=== PATIENT | male | born 1950 | race Caucasian/White ===

== ENCOUNTER 2019-01-01 05:57 | Outpatient (CLI) | payer MEDICARE, BC ==
[~2019-01-01] VITALS: Ht 182.9 cm; Wt 93.0 kg
[2019-01-01] MEDS ORDERED: MULT-1104 PO (12:20)
[2019-01-01] MEDS ORDERED: ATOR20TA66 PO (12:20)
[2019-01-01] MEDS ORDERED: BICA50TA5 PO (12:20)
[2019-01-01] MEDS ORDERED: DIAZ10TA3 PO (12:20)
== END 2019-01-01 12:32 | disposition home or self-care (01) ==
LOC: PREOP 05:57
PROVIDERS: ATTEND Radiology Radiation Oncology
DX: Z01.818 Encounter for other preprocedural examination (principal)

== ENCOUNTER → 2019-01-01 | Outpatient (CLI) | payer SELFPAY ==
[~2019-01-01] MED LIST: ATOR20TA66 PO; BICA50TA5 PO; DIAZ10TA3 PO; MULT-1104 PO
== END | disposition home or self-care (01) ==
LOC: PREOP 05:41 → MERGE 05:41
PROVIDERS: ATTEND Radiology Radiation Oncology
DX: Z01.818 Encounter for other preprocedural examination (principal)

== ENCOUNTER → 2019-01-08 | Day surgery (SDC) | payer MEDICARE, BC ==
[~2019-01-08] VITALS: Ht 182.9 cm; Wt 93.0 kg
[~2019-01-08] MED LIST changes: +ACET1TAB43 PO; +CIPR-226 PO; +DEXAMETHASONE 10 MG/ML (DECADRON) 1 ML VIAL ONE; +IOPAMIDOL 61% 30 ML (ISOVUE 300) VIAL IV ONE; +LACTATED RINGERS 1,000 ML IV PRN; +LEVOFLOXACIN 500 MG/100 ML IV 100 ML IV ONE; +LIDOCAINE PF 2% 5 ML (XYLOCAINE) VIAL ONE; +MIDAZOLAM 2 MG/2 ML (VERSED) VIAL ONE; +MUPIROCIN 2% OINT 22 GM (BACTROBAN) TUBE ONE; +ONDANSETRON 4 MG/2 ML (SDV) Z0FRAN ONE; +SEVOFLURANE (ULTANE) 15 ML INHAL SOLN ONE; +fentaNYL INJECTION 100 MCG/2 ML AMP ONE; +proPOfol 200 MG/20 ML (DIPRIVAN) VIAL IV ONE
[2019-01-08 11:30] VITALS: BP 151/94
== END | disposition home or self-care (01) ==
LOC: SDC 11:08 → MERGE 13:45
PROVIDERS: ATTEND Radiology Radiation Oncology
DX: C61 Malignant neoplasm of prostate (principal); Z53.9 Procedure and treatment not carried out, unspecified reason; Z11.2 Encounter for screening for other bacterial diseases
CPT/HCPCS: 87081

== ENCOUNTER 2019-02-14 14:31 | Outpatient (RCR) | payer MEDICARE, BC ==
[~2019-02-14 14:31] MED LIST changes: -DEXAMETHASONE 10 MG/ML (DECADRON) 1 ML VIAL ONE; -IOPAMIDOL 61% 30 ML (ISOVUE 300) VIAL IV ONE; -LACTATED RINGERS 1,000 ML IV PRN; -LEVOFLOXACIN 500 MG/100 ML IV 100 ML IV ONE; -LIDOCAINE PF 2% 5 ML (XYLOCAINE) VIAL ONE; -MIDAZOLAM 2 MG/2 ML (VERSED) VIAL ONE; -MUPIROCIN 2% OINT 22 GM (BACTROBAN) TUBE ONE; -ONDANSETRON 4 MG/2 ML (SDV) Z0FRAN ONE; -SEVOFLURANE (ULTANE) 15 ML INHAL SOLN ONE; -fentaNYL INJECTION 100 MCG/2 ML AMP ONE; -proPOfol 200 MG/20 ML (DIPRIVAN) VIAL IV ONE
[2019-02-14 15:03] LABS: CREATININE SERUM 0.9 MG/DL (0.60-1.30)
== END 2019-05-15 | disposition home or self-care (01) ==
LOC: ONC 14:31
PROVIDERS: ATTEND Radiology Radiation Oncology
DX: Z51.0 Encounter for antineoplastic radiation therapy (principal); C61 Malignant neoplasm of prostate
CPT/HCPCS: 36415; 77290; 77331; 82565; 84520